=== PATIENT | male | born 1945 | race Caucasian/White ===

== ENCOUNTER → 2020-12-17 | Outpatient (CLI) | payer MEDICARE, BC ==
[~2020-12-17] MED LIST: ASPI81TA45 PO; ATEN50TA41 PO; CYCL10TA2 PO; DIPH25CA61 PO; ESOM40CA PO; EZET10TA70 PO; FEXO180T72 PO; HYDROCHLOROTH12.5 MG PO; PRAS10TA4 PO; ROSU10TA2 PO; TAMS0.4C2 PO; TICA90TA PO
== END | disposition home or self-care (01) ==
LOC: RAD 10:18
PROVIDERS: ATTEND Internal Medicine Cardiovascular Disease
DX: Z01.810 Encounter for preprocedural cardiovascular examination (principal); I65.29 Occlusion and stenosis of unspecified carotid artery; I77.810 Thoracic aortic ectasia; K74.60 Unspecified cirrhosis of liver; I10 Essential (primary) hypertension; I65.23 Occlusion and stenosis of bilateral carotid arteries; I35.0 Nonrheumatic aortic (valve) stenosis; Z87.891 Personal history of nicotine dependence
CPT/HCPCS: 71250; 74176; 93880

== ENCOUNTER 2020-12-25 09:43 | Observation (INO) | payer MEDICARE, BC ==
[~2020-12-25] VITALS: Ht 182.9 cm; Wt 95.7 kg
[2020-12-25] MEDS: SODIUM CHLORIDE 0.9% 1,000 ML IV SCH ×6 (10:30→22:30)
[2020-12-25] MEDS ORDERED: DIPHENHYDRAMINE 50 MG/ML, 1ML ONE (10:32)
[2020-12-25] MEDS ORDERED: FENTANYL PF 100 MCG/2ML ONE (10:32)
[2020-12-25] MEDS ORDERED: MIDAZOLAM 1 MG/ML, 5ML ONE (10:32)
[2020-12-25] MEDS ORDERED: methylPREDNISolone SOD SUCC 125 MG/2 ML ONE (10:32)
[2020-12-25] MEDS ORDERED: LIDOCAINE-MPF 1%, 5ML ONE (10:33)
[2020-12-25] MEDS ORDERED: VERAPAMIL 2.5 MG/ML, 2ML ONE (10:33)
[2020-12-25] MEDS ORDERED: HEPARIN 1,000 UNITS/ML, 10ML ONE (10:33)
[2020-12-25 10:43] VITALS: BP 175/77
[2020-12-25 10:48] LABS: BASOPHILS % (AUTO) 1 % (0-1); EOSINOPHILS % (AUTO) 8 % (1-7); LYMPHOCYTES % (AUTO) 24 % (22-44); MEAN CORPUSCULAR HEMOGLOBIN 29.9 pg (27.5-34.5); MEAN CORPUSCULAR HGB CONC 33.9 g/dL (33.2-36.2); MEAN PLATELET VOLUME 9.7 fL (7.4-10.4); MONOCYTES % (AUTO) 10 % (2-9); NEUTROPHILS % (AUTO) 57 % (42-75); PLATELET COUNT 124 x10^3/uL (130-400); RED BLOOD COUNT 5.22 x10^6/uL (4.38-5.82); RED CELL DISTRIBUTION WIDTH 13.6 % (9.4-14.8)
[2020-12-25 10:50] LABS: MD NO
[2020-12-25] MEDS ORDERED: TACR0.5C4 PO (10:57)
[2020-12-25] MEDS ORDERED: ERGO500018 PO (10:57)
[2020-12-25] MEDS ORDERED: METO50TA82 PO ×2 (10:57→11:01)
[2020-12-25] MEDS ORDERED: VIT1TABL34 PO (10:57)
[2020-12-25] MEDS ORDERED: ACET-1600 PO (10:57)
[2020-12-25] MEDS ORDERED: ASPI81TA45 PO (10:57)
[2020-12-25 11:00] LABS: ANION GAP 4 mmol/L (5-15); CALCIUM 8.9 mg/dL (8.5-10.1); CHLORIDE 104 mmol/L (98-107)
[2020-12-25 11:01] LABS: CREATININE 1.65 mg/dL (0.7-1.3)
[2020-12-25] MEDS ORDERED: LIDOCAINE 1%, 20ML ONE (11:31)
[2020-12-25] MEDS ORDERED: BIVALIRUDIN 250 MG ONE (11:42)
[2020-12-25] MEDS ORDERED: TICAGRELOR 90 MG TABLET ONE (11:50)
[2020-12-25 12:15] VITALS: BP 158/79
[2020-12-25] MEDS ORDERED: LORATADINE 10 MG TABLET PO PRN (12:30)
[2020-12-25] MEDS ORDERED: DIPHENHYDRAMINE 25 MG CAPSULE PO PRN (12:30)
[2020-12-25] MEDS ORDERED: ACETAMINOPHEN 500 MG TABLET PO PRN (12:30)
[2020-12-25] MEDS: PLEASE ENTER HEIGHT AND WEIGHT MC SCH ×2 (12:52→21:27)
[2020-12-25] MEDS: ASPIRIN 81 MG TABLET EC PO SCH (13:14)
[2020-12-25] MEDS ORDERED: hydrALAzine 20 MG/ML, 1ML IV PRN (14:30)
[2020-12-25] MEDS ORDERED: AMLODIPINE 2.5 MG TABLET PO ONE (15:00)
[2020-12-25] MEDS ORDERED: ACETAMINOPHEN 325 MG TABLET PO PRN (15:00)
[2020-12-25] MEDS ORDERED: ONDANSETRON 2MG/ML, 2ML IVPush PRN (15:00)
[2020-12-25] MEDS ORDERED: METOPROLOL TARTRATE 50 MG TAB PO ONE (16:30)
[2020-12-25] MEDS: TICAGRELOR 90 MG TABLET PO SCH (20:10)
[2020-12-25] MEDS: TAMSULOSIN 0.4 MG CAP.ER.24H PO SCH (20:10)
[2020-12-25 20:55] VITALS: BP 136/76
[2020-12-25] MEDS ORDERED: METOPROLOL TARTRATE 25 MG TAB PO SCH (21:00)
[2020-12-25] MEDS ORDERED: METOPROLOL TARTRATE 50 MG TAB PO SCH (21:00)
[2020-12-25] MEDS: TACROLIMUS 0.5 MG CAPSULE PO SCH (21:47)
[2020-12-26] MEDS: SODIUM CHLORIDE 0.9% 1,000 ML IV SCH ×5 (02:30→10:15)
[2020-12-26] MEDS: PLEASE ENTER HEIGHT AND WEIGHT MC SCH ×2 (03:00→10:15)
[2020-12-26 03:15] VITALS: BP 134/69
[2020-12-26 05:32] LABS: CALCIUM 8.8 mg/dL (8.5-10.1); CHLORIDE 103 mmol/L (98-107)
[2020-12-26 05:36] LABS: ANION GAP 8 mmol/L (5-15)
[2020-12-26 07:28] VITALS: BP 134/68
[2020-12-26] MEDS: TICAGRELOR 90 MG TABLET PO SCH (08:41)
[2020-12-26] MEDS: ASPIRIN 81 MG TABLET EC PO SCH (08:41)
[2020-12-26] MEDS: TAMSULOSIN 0.4 MG CAP.ER.24H PO SCH (08:42)
[2020-12-26] MEDS: TACROLIMUS 0.5 MG CAPSULE PO SCH (08:42)
[2020-12-26] MEDS ORDERED: PANTOPRAZOLE 40MG TABLET PO SCH (09:00)
[2020-12-26] MEDS ORDERED: METOPROLOL TARTRATE 25 MG TAB PO SCH (09:00)
[2020-12-26] MEDS ORDERED: TICA90TA PO (11:18)
== END 2020-12-26 12:36 | disposition home or self-care (01) ==
LOC: CACL 09:43 → ORIP 12:11 → 5SO 12:24 → DCLOUNGE 12-26 12:27
PROVIDERS: ADMIT Internal Medicine Cardiovascular Disease; ATTEND Internal Medicine Cardiovascular Disease
DX: I35.0 Nonrheumatic aortic (valve) stenosis (principal); I25.110 Atherosclerotic heart disease of native coronary artery with unstable angina pectoris; I12.9 Hypertensive chronic kidney disease with stage 1 through stage 4 chronic kidney disease, or unspecified chronic kidney disease; N18.9 Chronic kidney disease, unspecified; I48.0 Paroxysmal atrial fibrillation; E78.5 Hyperlipidemia, unspecified; D68.69 Other thrombophilia; Z85.828 Personal history of other malignant neoplasm of skin; Z95.5 Presence of coronary angioplasty implant and graft; Z79.82 Long term (current) use of aspirin; Z79.899 Other long term (current) drug therapy; Z01.810 Encounter for preprocedural cardiovascular examination; Z87.891 Personal history of nicotine dependence; Z94.4 Liver transplant status
CPT/HCPCS: 36415; 80048; 85025; 93454; 96361; 96374; 99156; 99157; C1760; C1769; C1874; C1887; C1894; C9600; G0378; J0360; J0583; J1200; J2250; J2930; J3010; J3490; J7030; J7507; Q9967; J1644

== ENCOUNTER 2021-01-05 07:55 | Inpatient (IN) | payer MEDICARE, BC ==
[~2021-01-05] VITALS: Ht 182.9 cm; Wt 93.6 kg
[~2021-01-05 07:55] MED LIST changes: +ACET-1600 PO; +ERGO1250 PO; +METO50TA82 PO; +TACR0.5C4 PO; +VIT1TABL34 PO
[2021-01-05] MEDS ORDERED: ONDANSETRON 2MG/ML, 2ML IV PRN (08:30)
[2021-01-05] MEDS ORDERED: METO50TA82 PO (08:30)
[2021-01-05] MEDS ORDERED: PLEASE ENTER HEIGHT AND WEIGHT MC SCH (08:30)
[2021-01-05] MEDS ORDERED: CLOP75TA52 PO (08:32)
[2021-01-05 08:35] VITALS: BP 169/91
[2021-01-05 08:51] LABS: BASOPHILS % (AUTO) 1 % (0-1); EOSINOPHILS % (AUTO) 8 % (1-7); LYMPHOCYTES % (AUTO) 22 % (22-44); MEAN CORPUSCULAR HGB CONC 33.7 g/dL (33.2-36.2); MEAN PLATELET VOLUME 9.3 fL (7.4-10.4); MONOCYTES % (AUTO) 11 % (2-9); NEUTROPHILS % (AUTO) 58 % (42-75); PLATELET COUNT 135 x10^3/uL (130-400); RED BLOOD COUNT 4.96 x10^6/uL (4.38-5.82)
[2021-01-05 08:52] LABS: MD NO
[2021-01-05 08:57] LABS: INTERNATIONAL NORMALIZED RATIO 1.05 (0.93-1.1); PROTHROMBIN TIME 11.2 Seconds (9.6-11.5)
[2021-01-05 08:58] LABS: ALANINE AMINOTRANSFERASE 22 U/L (12-78); ALBUMIN 3.4 g/dL (3.4-5.0); ANION GAP 5 mmol/L (5-15); CALCIUM 8.5 mg/dL (8.5-10.1); CHLORIDE 105 mmol/L (98-107); CREATININE 1.58 mg/dL (0.7-1.3)
[2021-01-05 09:00] LABS: ALKALINE PHOSPHATASE 90 U/L (45-117); BILIRUBIN,TOTAL 0.7 mg/dL (0.2-1.0); TOTAL PROTEIN 6.9 g/dL (6.4-8.2)
[2021-01-05] MEDS ORDERED: methylPREDNISolone SOD SUCC 125 MG/2 ML IVPush ONE (09:30)
[2021-01-05] MEDS ORDERED: DIPHENHYDRAMINE 50 MG/ML, 1ML IVPush ONE (09:30)
[2021-01-05] MEDS ORDERED: FAMOTIDINE 20 MG/2 ML IVPush ONE (09:30)
[2021-01-05] MEDS ORDERED: HEPARIN 1,000 UNITS/ML, 10ML ONE ×2 (10:21)
[2021-01-05] MEDS ORDERED: ROCURONIUM 10MG/ML,5ML ONE (10:21)
[2021-01-05] MEDS ORDERED: PROPOFOL 10 MG/ML, 20ML ONE (10:21)
[2021-01-05] MEDS ORDERED: ONDANSETRON 2MG/ML, 2ML ONE (10:21)
[2021-01-05] MEDS ORDERED: CEFAZOLIN 1,000 MG ONE (10:21)
[2021-01-05] MEDS ORDERED: DEXAMETHASONE 4 MG/ML, 1ML ONE (10:21)
[2021-01-05] MEDS ORDERED: FENTANYL PF 250 MCG/5ML ONE (10:21)
[2021-01-05] MEDS ORDERED: SUCCINYLCHOLINE 20 MG/ML, 10ML ONE (10:21)
[2021-01-05] MEDS ORDERED: PHENYLEPHRINE 10 MG/ML ONE (10:25)
[2021-01-05] MEDS ORDERED: LORATADINE 10 MG TABLET PO PRN (11:30)
[2021-01-05] MEDS ORDERED: DIPHENHYDRAMINE 25 MG CAPSULE PO PRN (11:30)
[2021-01-05] MEDS: ASPIRIN 81 MG TABLET EC PO SCH (11:30)
[2021-01-05 12:20] VITALS: BP 145/66
[2021-01-05] MEDS ORDERED: TAMSULOSIN 0.4 MG CAP.ER.24H ONE (16:30)
[2021-01-05] MEDS ORDERED: METOPROLOL TARTRATE 50 MG TAB ONE (16:30)
[2021-01-05] MEDS ORDERED: TACROLIMUS 0.5 MG CAPSULE ONE (16:30)
[2021-01-05 16:42] VITALS: BP 140/65
[2021-01-05] MEDS: TACROLIMUS 0.5 MG CAPSULE PO SCH (16:44)
[2021-01-05] MEDS: TAMSULOSIN 0.4 MG CAP.ER.24H PO SCH (16:44)
[2021-01-05] MEDS: ACETAMINOPHEN 500 MG TABLET PO PRN (16:44)
[2021-01-05 19:07] VITALS: BP 152/76
[2021-01-05] MEDS ORDERED: METOPROLOL TARTRATE 50 MG TAB PO SCH (21:00)
[2021-01-06 01:34] VITALS: BP 143/74
[2021-01-06] MEDS ORDERED: PANTOPRAZOLE 40MG TABLET PO SCH (07:30)
[2021-01-06] MEDS: ACETAMINOPHEN 500 MG TABLET PO PRN (08:26)
[2021-01-06 08:32] VITALS: BP 149/60
[2021-01-06] MEDS: ASPIRIN 81 MG TABLET EC PO SCH (08:39)
[2021-01-06] MEDS: TAMSULOSIN 0.4 MG CAP.ER.24H PO SCH (08:39)
[2021-01-06] MEDS: TACROLIMUS 0.5 MG CAPSULE PO SCH (08:39)
[2021-01-06] MEDS ORDERED: CLOPIDOGREL 75 MG TABLET PO SCH (09:00)
[2021-01-06] MEDS ORDERED: METOPROLOL TARTRATE 25 MG TAB PO SCH (09:00)
== END 2021-01-06 13:54 | disposition home or self-care (01) | DRG 266 ==
LOC: ORIP 07:55 → 5SO 13:00 → DCLOUNGE 01-06 13:44
PROVIDERS: ADMIT Internal Medicine Cardiovascular Disease; ATTEND Internal Medicine Cardiovascular Disease
PROC: 047H3ZZ Dilation of Right External Iliac Artery, Percutaneous Approach (ICD-10-PCS; 2021-01-05)
PROC: 047C3ZZ Dilation of Right Common Iliac Artery, Percutaneous Approach (ICD-10-PCS; 2021-01-05)
PROC: B24BZZ4 Ultrasonography of Heart with Aorta, Transesophageal (ICD-10-PCS; 2021-01-05)
PROC: B41F1ZZ Fluoroscopy of Right Lower Extremity Arteries using Low Osmolar Contrast (ICD-10-PCS; 2021-01-05)
PROC: B3101ZZ Fluoroscopy of Thoracic Aorta using Low Osmolar Contrast (ICD-10-PCS; 2021-01-05)
PROC: 02RF38Z Replacement of Aortic Valve with Zooplastic Tissue, Percutaneous Approach (ICD-10-PCS; principal; 2021-01-05 10:30)
DX: I35.0 Nonrheumatic aortic (valve) stenosis (principal); Z00.6 Encounter for examination for normal comparison and control in clinical research program; I50.33 Acute on chronic diastolic (congestive) heart failure; I13.0 Hypertensive heart and chronic kidney disease with heart failure and stage 1 through stage 4 chronic kidney disease, or unspecified chronic kidney disease; Z94.4 Liver transplant status; Z20.822 Contact with and (suspected) exposure to COVID-19; E78.5 Hyperlipidemia, unspecified; I25.10 Atherosclerotic heart disease of native coronary artery without angina pectoris; N18.9 Chronic kidney disease, unspecified; Z91.041 Radiographic dye allergy status; Z95.5 Presence of coronary angioplasty implant and graft; Z79.899 Other long term (current) drug therapy
CPT/HCPCS: 33361; 36415; 37220; 76937; 80053; 85025; 85610; 86850; 86900; 86923; 87635; 93005; 93306; 93312; 93321; 93325; 93355; C1760; C1769; C1894; G0378; J0690; J1100; J1644; J2405; J2704; J3010; J7507; J0330; J1200; J2370; J2930; J7512; Q9967

== ENCOUNTER → 2021-02-16 | Outpatient (CLI) | payer MEDICARE, BC ==
[~2021-02-16] MED LIST changes: +CLOP75TA52 PO
== END | disposition home or self-care (01) ==
LOC: CFH 09:45
PROVIDERS: ATTEND Internal Medicine Cardiovascular Disease
DX: Z01.810 Encounter for preprocedural cardiovascular examination (principal); I65.29 Occlusion and stenosis of unspecified carotid artery; R06.02 Shortness of breath; I05.2 Rheumatic mitral stenosis with insufficiency; I05.8 Other rheumatic mitral valve diseases; Z95.2 Presence of prosthetic heart valve
CPT/HCPCS: 93306